=== PATIENT | male | born 1945 | race American Indian/Alaskan Native ===

== ENCOUNTER 2016-09-25 08:09 | Emergency (ER) | payer MEDICARE ==
[2016-09-25 08:51] LABS: Basophils % (Auto) 0.8 % (0.0-1.8); Eosinophils % (Auto) 1.7 % (0.0-4.3); Hematocrit 39.9 % (35.5-45.6); Hemoglobin 12.8 gm/dl (11.8-15.2); Mean Corpuscular HGB Conc 32 % (32-34); Mean Corpuscular Hemoglobin 30 pg (28-32); Mean Corpuscular Volume 93 fl (84-94); Platelet Count 131 K/mm3 (140-440); Red Blood Count 4.31 M/mm3 (3.65-5.03); Red Cell Distribution Width 14.6 % (13.2-15.2); White Blood Count 2.9 K/mm3 (4.5-11.0)
[2016-09-25 09:01] LABS: Anion Gap 15 mmol/L; BUN/Creatinine Ratio 15.55; Blood Urea Nitrogen 14 mg/dL (9-20); Calcium 8.9 mg/dL (8.4-10.2); Carbon Dioxide 25 mmol/L (22-30); Chloride 103.6 mmol/L (98-107); Glucose 102 mg/dL (75-100); Potassium 4.1 mmol/L (3.6-5.0); Sodium 139 mmol/L (137-145)
[2016-09-25] MEDS ORDERED: TYLENOL PO ONE (14:21)
[2016-09-25 14:28] VITALS: BP 133/67
--- NOTE | 2016-09-25 14:51 | XRay Report ---
PA and lateral chest: The lungs are hyperinflated but clear of any infiltrate or nodule. There is eventration of the central left hemidiaphragm with gaseous distention of bowel below. The aorta is tortuous and the heart is normal in size. No vascular distention. No prior study for comparison. Impression: Pulmonary hyperinflation. No acute finding suspected.
--- NOTE | 2016-09-25 15:38 | Emergency Department Report ---
HPI - General Chief Complaint: Headache Time Seen by Provider: 09/25/16 14:05 - HPI HPI: Chief complaint: Headache, chest and epigastric discomfort HPI: Patient states that for the last 3-4 weeks he's been having an intermittent headache relieved with Tylenol. Patient states it's in his forehead radiates down the side of his left head and behind his ear down his neck and into his anterior chest. Patient states the headache is worse when urinating. The chest pain and epigastric pain are worse after eating. He describes the abdominal and chest pain as a bloating sensation in the headache is a dull pain. Patient also has some sharp chest pains at times it lasts momentarily. Patient denies a fever, nausea, vomiting, diarrhea, productive cough. She denies a history of hypertension, diabetes, elevated cholesterol, uses cocaine, family history of coronary artery disease, recent surgery or recent travel. Patient hasn't past medical history of trauma for which he had surgery. He thinks they operated on his lungs but the surgical scar is in the upper abdomen. Patient is not sure if he had a splenectomy or not. Patient states he was seen for this at [place] and had a negative head CT and has an appointment with a neurologist for further evaluation. Mode of arrival: private car Source: Patient Began: see above Duration: intermittent Context: See above Quality: see above Severity: out of 10 Improved with: see above Worsened with: see above Associated signs and symptoms: See above ED Past Medical Hx - Past Medical History Previous Medical History?: Yes Hx Arthritis: Yes Additional medical history: enlarged prostate. glaucoma - Surgical History Past Surgical History?: Yes Additional Surgical History: mult. s/p 50 ft fall 1995 - Social History Smoking Status: Former Smoker Substance Use Type: Alcohol, Prescribed - Medications Home Medications: Home Medications Medication Instructions Recorded Confirmed Last Taken Type Tamsulosin [Flomax] 0.4 mg PO QDAY 09/08/13 09/25/16 09/24/16 History Ibuprofen [Motrin 800 MG tab] 800 mg PO Q8H PRN #30 tablet 09/16/14 09/25/1611/10 Rx Aspirin [Aspirin BABY CHEW TAB] 81 mg PO QDAY 10/22/14 09/25/16 09/24/16 History Hyoscyamine Subl [Levsin Sl] 0.125 mg SL Q6HR PRN #14 tablet 11/01/14 09/25/16 Unknown Rx Omeprazole Magnesium [Prilosec Otc] 20 mg PO QDAY #7 tablet. 11/01/14 Unknown Rx Omeprazole Magnesium [PriLOSEC Otc] 20 mg PO BID #20 tab 09/25/16 Unknown Rx traMADol [Ultram 50 MG tab] 50 mg PO Q6HR PRN #14 tablet 09/25/16 Unknown Rx ED Review of Systems ROS: Stated complaint: HEAD AND CHEST PAIN Other details as noted in HPI ROS Constitutional: No fever ENT: No uri symptoms Cardiovascular: chest pain Respiratory: No sob or cough GI: No nausea vomiting or diarrhea : No dysuria frequency or urgency, Skin: No rash Neuro: No focal weakness or numbness Psych: No depression Charles/lymph: No edema Physical Exam - Physical Exam Vital Signs: Vital Signs 09/25/16 09/25/16 08:20 14:26 Temperature 98.1 F 98.1 F Pulse Rate 62 50 L Respiratory 18 16 Rate Blood Pressure 133/71 Blood Pressure 133/67 [Left] O2 Sat by Pulse 100 99 Oximetry Physical Exam: GENERAL: The patient is well-developed well-nourished . HEENT: Normocephalic. Atraumatic. Extraocular motions are intact. Patient has moist mucous membranes. NECK: Supple. No meningitic signs are noted. There is no adenopathy noted. CHEST/LUNGS: Clear to auscultation. There is no respiratory distress noted. HEART/CARDIOVASCULAR: Regular. There is no tachycardia. There is no gallop rub or murmur. ABDOMEN: Abdomen is soft, nontender. Patient has normal bowel sounds. There is no abdominal distention. SKIN: There is no rash. There is no edema. There is no diaphoresis. NEURO: The patient is awake, alert, and oriented. The patient is cooperative. The patient has no focal neurologic deficits. The patient has normal speech. MUSCULOSKELETAL: There is no tenderness or deformity. There is no limitation range of motion. There is no evidence of acute injury. ED Course Vital Signs 09/25/16 09/25/16 08:20 14:26 Temperature 98.1 F 98.1 F Pulse Rate 62 50 L Respiratory 18 16 Rate Blood Pressure 133/71 Blood Pressure 133/67 [Left] O2 Sat by Pulse 100 99 Oximetry - Reevaluation(s) Reevaluation #1: 09/25/16 15:50 Patient given 2 Tylenol by mouth with some improvement of his headache ED Medical Decision Making - Lab Data Result diagrams: 09/25/16 08:40 09/25/16 08:40 Laboratory Tests 09/25/16 09/25/16 09/25/16 08:40 11:23 14:37 Troponin T < 0.010 < 0.010 < 0.010 - EKG Data -: EKG Interpreted by Me EKG shows normal: sinus rhythm Rate: bradycardia (59) - EKG Data When compared to previous EKG there are: no significant change Interpretation: normal EKG (except for bradycardia) - Radiology Data Radiology results: report reviewed (chest x-ray shows no acute process.) Critical care attestation.: If time is entered above; I have spent that time in minutes in the direct care of this critically ill patient, excluding procedure time. ED Disposition Clinical Impression: Atypical chest pain Headache Qualifiers: Headache type: unspecified Headache chronicity pattern: unspecified pattern Disposition: DISCHARGED TO HOME OR SELFCARE Is pt being admited?: No Does the pt Need Aspirin: No Condition: Stable Instructions: Chest Pain (ED), Acute Headache (ED), Gastroesophageal Reflux Disease (ED) Prescriptions: Omeprazole Magnesium [PriLOSEC Otc] 20 mg PO BID #20 tab traMADol [Ultram 50 MG tab] 50 mg PO Q6HR PRN #14 tablet PRN Reason: Pain Referrals: PRIMARY CARE,MD [Primary Care Provider] - 3-5 Days follow up, with neurologist as planned [Other] - 3-5 Days Time of Disposition: 15:42
== END 2016-09-25 16:17 | disposition home or self-care (01) ==
LOC: ED 08:09
DX: R51 Headache (principal); R07.89 Other chest pain; R10.13 Epigastric pain; M19.90 Unspecified osteoarthritis, unspecified site; H40.9 Unspecified glaucoma; Z87.891 Personal history of nicotine dependence; Z79.82 Long term (current) use of aspirin
CPT/HCPCS: 36415; 71020; 80048; 84484; 85025; 93005; 93010